=== PATIENT | male | born 1975 | race Hispanic/Latino ===

== ENCOUNTER 2021-06-02 21:24 | Emergency (ER) | payer OTHER ==
[~2021-06-02] VITALS: Ht 175.3 cm; Wt 86.2 kg
[2021-06-02] MEDS ORDERED: HYDROCODONE/APAP 5MG-325MG TAB PO ONE (22:15)
[2021-06-02] MEDS ORDERED: HYDROCODONE/APAP 5MG-325MG TAB ONE (22:18)
[2021-06-02] MEDS ORDERED: TETANUS/DIPHTHERIA TOX ADULT 0.5 ML SYR IM ONE (22:45)
[2021-06-03] MEDS ORDERED: HYDROCODON-ACE1 EA12 PO (00:04)
== END 2021-06-03 00:18 | disposition home or self-care (01) ==
LOC: ER 22:05
DX: S92.322A Displaced fracture of second metatarsal bone, left foot, initial encounter for closed fracture (principal); S92.342A Displaced fracture of fourth metatarsal bone, left foot, initial encounter for closed fracture; S92.352A Displaced fracture of fifth metatarsal bone, left foot, initial encounter for closed fracture; S69.91XA Unspecified injury of right wrist, hand and finger(s), initial encounter; V43.92XA Unspecified car occupant injured in collision with other type car in traffic accident, initial encounter; Y92.488 Other paved roadways as the place of occurrence of the external cause; F17.210 Nicotine dependence, cigarettes, uncomplicated
CPT/HCPCS: 90714; 99283